=== PATIENT | female | born 1955 | race Caucasian/White ===

== ENCOUNTER → 2023-05-27 17:30 | Outpatient (REF) | payer MEDICARE, OTHER, SELFPAY | LOC: MRI 17:30 | PROVIDERS: ATTENDING PHYSICIAN Orthopaedic Surgery; FAMILY PHYSICIAN Family Medicine | DX: M25.511 Pain in right shoulder (principal) | CPT/HCPCS: 73221 ==

== ENCOUNTER → 2023-07-27 10:54 | Outpatient (REF) | payer MEDICARE, SELFPAY | LOC: RAD 10:54 | PROVIDERS: ATTENDING PHYSICIAN Family Medicine | DX: Z78.0 Asymptomatic menopausal state (principal) | CPT/HCPCS: 77080 ==

== ENCOUNTER → 2023-09-17 10:06 | Outpatient (REF) | payer MEDICARE, SELFPAY | LOC: WDC 10:06 | PROVIDERS: ATTENDING PHYSICIAN Family Medicine | DX: Z12.31 Encounter for screening mammogram for malignant neoplasm of breast (principal) | CPT/HCPCS: 77063; 77067 ==

== ENCOUNTER 2024-03-01 06:17 | Day surgery (SDC) | payer MEDICARE, SELFPAY ==
[2024-02-28 10:46] LABS: Hematocrit 39.9 % (37.0-47.0); Hemoglobin 13.6 g/dL (12.0-16.0); Mean Corp Hgb Conc. 34.1 g/dL (33.0-37.0); Mean Corpuscular Hgb 30.1 pg (27.0-31.0); Mean Corpuscular Volume 88.3 fL (81.0-99.0); Mean Platelet Volume 8.9 fL (7.4-10.4); Platelet Count 343 10^3/uL (130-400); Red Blood Cell Count 4.52 10^6/uL (4.20-5.40); Red Cell Dist. Width 12.9 % (11.5-14.5); White Blood Cell Count 4.1 10^3/uL (4.8-10.8)
[2024-02-28 11:56] LABS: Blood Urea Nitrogen 9 mg/dl (7-17); Calcium 8.7 mg/dl (8.4-10.2); Carbon Dioxide 30 mmol/L (22-30); Chloride 102 mmol/L (98-107); Glucose 87 mg/dl (70-99); Potassium 4.6 mmol/L (3.5-5.1); Sodium 137 mmol/L (135-145); eGFR > 60.00
[2024-02-28 13:40] VITALS: BMI 25.2
[2024-03-01] VITALS (9 sets, daily range): BP systolic 142–152; BP diastolic 51–104; BMI 25.2
[2024-03-01] MEDS: CELEBREX 200 MG PO (10:17)
[2024-03-01] MEDS: TYLENOL 1000 MG PO (10:17)
[2024-03-01] MEDS: NORMOSOL-R/PLASMALYTE-A 1000 IV (10:30)
== END 2024-03-01 16:00 | disposition home or self-care (01) ==
LOC: SDS 06:17
PROVIDERS: ATTENDING PHYSICIAN Orthopaedic Surgery; FAMILY PHYSICIAN Family Medicine
DX: M75.111 Incomplete rotator cuff tear or rupture of right shoulder, not specified as traumatic (principal); M19.011 Primary osteoarthritis, right shoulder; M24.111 Other articular cartilage disorders, right shoulder
CPT/HCPCS: 29827; 29824; 29826; 36415; 80048; 85027; 93005; C1713

== ENCOUNTER → 2024-10-17 16:20 | Outpatient (REF) | payer MEDICARE, SELFPAY | LOC: WDC 16:20 | PROVIDERS: ATTENDING PHYSICIAN Obstetrics & Gynecology; FAMILY PHYSICIAN Family Medicine | DX: Z12.31 Encounter for screening mammogram for malignant neoplasm of breast (principal) | CPT/HCPCS: 77063; 77067 ==